=== PATIENT | female | born 1985 | race Two or more races ===

== ENCOUNTER 2024-04-22 16:15 | Emergency (ER) | payer BC, MEDICAID ==
[~2024-04-22] VITALS: Ht 154.9 cm; Wt 86.2 kg
[2024-04-22 17:08] LABS: Urine Bacteria FEW /hpf (None Seen); Urine Blood Negative /uL (Negative); Urine Clarity Turbid (Clear); Urine Color Light-Yellow (Yellow); Urine Protein, UAD Negative (Negative); Urine Specific Gravity 1.006 (1.001-1.035); Urine Urobilinogen Normal (Negative); Urine WBC 8 /hpf (0 - 5)
[2024-04-22] MEDS ORDERED: TRAM50TA2 PO (17:39)
[2024-04-22] MEDS ORDERED: CIPR-173 PO (17:39)
[2024-04-22 17:53] VITALS: BP 116/71; PULSE 66; RESP 18; TEMP 98.7; O2SAT 97
== END 2024-04-22 17:56 | disposition home or self-care (01) ==
LOC: ER 16:19
DX: N39.0 Urinary tract infection, site not specified (principal); R10.2 Pelvic and perineal pain; Z79.899 Other long term (current) drug therapy
CPT/HCPCS: 74176; 81001; 81025